=== PATIENT | female | born 1940 | race Caucasian/White ===

== ENCOUNTER 2017-05-07 13:02 | Emergency (ER) | payer MEDICARE ==
--- NOTE | 2017-05-07 13:29 | ERNOTE ---
Upper Extremity HPI - Narrative Date of Service: 05/07/17 - General Extremities Pain Location: hand: left Time Seen by Provider: 05/07/17 13:13 Source: patient Exam Limitations: no limitations - Immun/Allergies/Home Medications Immunizations: IMMUNIZATION HX History of Influenza Vaccine No Allergies/Adverse Reactions: Allergies Allergy/AdvReac Type Severity Reaction Status Date / Time aspirin [From Norgesic] Allergy Verified 05/07/17 13:16 caffeine [From Norgesic] Allergy Verified 05/07/17 13:16 latex Allergy Verified 05/07/17 13:16 orphenadrine citrate Allergy Verified 05/07/17 13:16 [From Norgesic] Penicillins Allergy Verified 05/07/17 13:16 promethazine HCl Allergy Verified 05/07/17 13:16 [From Phenergan] Sulfa (Sulfonamide Allergy Verified 05/07/17 13:16 Antibiotics) corn based product Allergy Uncoded 05/07/17 13:16 Home Medications: HOME MEDICATIONS Albuterol Sulfate [Albuterol Sulfate Hfa] 2 puff IH BID 04/07/13 [Last Taken Unknown] Cholecalciferol (Vitamin D3) [Vitamin D] 1,000 unit PO DAILY 04/07/13 [Last Taken Unknown] Cyanocobalamin [Vitamin B-12] 1,000 mcg PO DAILY 04/07/13 [Last Taken Unknown] Fluticasone Furoate [Veramyst] 27.5 mg NS DAILY 04/07/13 [Last Taken Unknown] Fluticasone Propionate [Flovent Hfa] 2 puff IH BID 04/07/13 [Last Taken Unknown] Trazodone HCl 50 mg PO HS 04/07/13 [Last Taken Unknown] - History of Present Illness Narrative: Pt is a 76 year old pt who presents following a left hand injury after 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 She applied ice last night, but has had increased swelling since then. She denies numbness, tingling. There is pain upon movement and ROM is limited due to swelling. There is slight eccymosis to the anterior aspect of the area. Date (Duration): 05/06/17 Time (Timing): 15:00 Occurred: yesterday Location of Incident: home Severity: mild Method of Injury: Reports: direct blow Reason for Fall: Denies: fainted, lightheaded, lost balance, slipped, tripped Loss of Consciousness: Reports: no loss of consciousness Modifying Factors - (Improves): Reports: cold therapy, immobilization, pain medication Modifying Factors - (Worsens): Reports: movement Associated Symptoms: Denies: tingling, weakness, numbness distally, loss of feeling Other Injuries: Reports: none Review of Systems - Review of Systems Constitutional: Present: no symptoms reported EYE: Present: no symptoms reported ENT: Present: no symptoms reported Respiratory: Present: no symptoms reported Cardiology: Present: no symptoms reported Gastrointestinal/Abdominal: Present: no symptoms reported Genitourinary: Present: no symptoms reported Musculoskeletal: Present: joint pain Skin: Present: other - swelling to injured area Neurological: Present: no symptoms reported Endocrine: Present: no symptoms reported Hematologic/Lymphatic: Present: no symptoms reported - Patient's Past Medical History Patient History - Medical: No pertinent hx Patient History - Cardiac/Respiratory: Asthma Patient History - Cancer: No Hx of Cancer Patient History - Surgical Procedures: Hysterectomy, T & A, Hernia Repair Patient History - Other: None - Social History Living Situations: home Psych History: No pertinent hx Smoking Status: Never smoker Have you smoked in the past 12 months: No Do you dip or chew tobacco: No Patient requests Smoking Cessation Consult: No Alcohol Use: none Drug Use: none - Immunizations History of Influenza Vaccine: No Physical Exam - Physical Exam General Appearance: Present: wd/wn, alert, no apparent distress Head Exam: Present: normal inspection, no evidence of injury Eye Exam: Normal inspection: bilateral Respiratory: Present: no respiratory distress, normal breath sounds, no accessory muscle use, chest nontender, lungs clear Cardiovascular/Chest: Present: regular rate, rhythm, no murmur, normal peripheral pulses Gastrointestinal/Abdominal: Present: normal bowel sounds, nontender, nondistended, soft, no organomegaly Extremity Exam: Present: normal except -, decreased range of motion, joint swelling, other - slight eccymosis over the MCP between the left 2nd and 3rd digit Neurological Exam: Present: alert, oriented, normal mood/affect, no motor/ sensory deficits Skin Exam: Present: normal color, warm/dry ED Progress - Vital Signs Vital Signs: Vital Signs 05/07/17 13:10 Temperature 36.6 C Pulse Rate 87 Respiratory 12 Rate Blood Pressure 147/82 O2 Sat by Pulse 97 Oximetry - X-Ray X-Ray #1 X-Ray: hand Interpretation: Interp. by me - Progress/Reassessment Chief Complaint: Hand Injury/Pain Plan - Plan Plan: Pt xrays revealed an avulsion fracture of the medial aspect of her second distal phalanx. Her fingers will be margarito tapped together and she will be instructed to call ortho for follow up on Monday. Departure Clinical Impression: Distal phalanx or phalanges, closed fracture Qualifiers: Encounter type: initial encounter Finger: index finger Fracture alignment: nondisplaced Laterality: left Qualified Code(s): S62.661A - Nondisplaced fracture of distal phalanx of left index finger, initial encounter for closed fracture - Departure Disposition: Home Follow Up Needed Condition: Good Instructions: Finger Fracture, [id number] Additional Instructions: Your xray shows an index finger fracture at your knuckle. You can take Ibuprofen or Tylenol for pain. Use ice as needed and keep hand elevated to help decrease swelling. Your fingers have been margarito tapped together to assist in splinting your finger. Please keep this in place until you speak with ortho. Please call the ortho clinic on Monday and they will instruct you for follow up care. Referrals: Gopal Fritz MD [Staff Physician] -
[2017-05-07 13:55] VITALS: BP 144/86
== END 2017-05-07 14:17 | disposition home or self-care (01) ==
LOC: ER 13:02
DX: X58.XXXA Exposure to other specified factors, initial encounter; Y93.89 Activity, other specified; S62.661A Nondisplaced fracture of distal phalanx of left index finger, initial encounter for closed fracture; Y92.007 Garden or yard of unspecified non-institutional (private) residence as the place of occurrence of the external cause